=== PATIENT | male | born 1945 | race Caucasian/White ===

== ENCOUNTER 2018-07-18 18:53 | Emergency (ER) | payer OTHER ==
[~2018-07-18] VITALS: Ht 175.2 cm; Wt 86.2 kg
[2018-07-18] MEDS ORDERED: NORCO 5-325 TA1 EACH PO (22:20)
[2018-07-18] MEDS ORDERED: CYCLOBENZAPRINE10 MG PO (22:20)
== END 2018-07-18 22:25 | disposition home or self-care (01) ==
LOC: ED 18:53
DX: M51.16 Intervertebral disc disorders with radiculopathy, lumbar region (principal); M25.462 Effusion, left knee; W18.39XA Other fall on same level, initial encounter; Y93.89 Activity, other specified; Y92.89 Other specified places as the place of occurrence of the external cause; Y99.8 Other external cause status

== ENCOUNTER → 2018-08-08 | Outpatient (CLI) | payer OTHER ==
[~2018-08-08] MED LIST: CYCLOBENZAPRINE10 MG PO; NORCO 5-325 TA1 EACH PO
[2018-08-08 12:58] LABS: ACT PARTIAL THROMBO TIME 23.5 SECONDS (20.8-31.5); INTERNATIONAL NORM RATIO 0.9 (2.0-3.5)
== END | disposition home or self-care (01) ==
LOC: CT 08-02 13:00 → LAB 02:29 → EDSTATUS 13:00
PROVIDERS: Orthopaedic Surgery
DX: S86.812A Strain of other muscle(s) and tendon(s) at lower leg level, left leg, initial encounter (principal); S83.242A Other tear of medial meniscus, current injury, left knee, initial encounter; W01.0XXA Fall on same level from slipping, tripping and stumbling without subsequent striking against object, initial encounter; Y93.89 Activity, other specified; Y92.89 Other specified places as the place of occurrence of the external cause; Y99.2 Volunteer activity

== ENCOUNTER → 2020-08-29 | Outpatient (CLI) | payer MEDICARE | END | disposition home or self-care (01) | LOC: COVID19 09:16 | PROVIDERS: ATTEND Internal Medicine | DX: Z20.828 Contact with and (suspected) exposure to other viral communicable diseases (principal) ==